=== PATIENT | male | born 1985 | race Caucasian/White ===

== ENCOUNTER 2017-03-29 08:04 | Emergency (ER) | payer OTHER ==
[2017-03-29] MEDS ORDERED: LORA-702 PO (08:18)
[2017-03-29] MEDS ORDERED: ALBU8.5H3 INH (08:19)
[2017-03-29 09:14] VITALS: BP 133/83
== END 2017-03-29 09:17 | disposition home or self-care (01) ==
LOC: ED 09:11
DX: R07.89 Other chest pain (principal)
CPT/HCPCS: 71020; 93005

== ENCOUNTER → 2017-10-30 | Outpatient (CLI) | payer OTHER ==
[~2017-10-30] MED LIST: ALBU8.5H8 INH; GADOBUTROL 10 MMOL/10 ML PFS ONE; LORA-702 PO
== END | disposition home or self-care (01) ==
LOC: CFH 07:47
PROVIDERS: ATTEND Otolaryngology
DX: R43.0 Anosmia (principal)
CPT/HCPCS: 70553; A9585